=== PATIENT | female | born 1950 | race Caucasian/White ===

== ENCOUNTER 2016-06-29 16:10 | Inpatient (IN) | payer MEDICARE ==
[2016-06-29] MEDS ORDERED: IPRATROPIUM/ALBUTEROL SULFATE 3 ML AMPUL.NEB NEB ONE ×2 (16:27→18:12)
--- NOTE | 2016-06-29 16:28 | ED Physician Documentation ---
Dyspnea - HISTORIAN Historian: patient - HPI Stated Complaint: SOA Chief Complaint: Dyspnea Onset: days ago (1) Duration: continues in ED Severity: mild Exacerbated By: exertion Associated Symptoms: productive cough. denies: chest pain, bloody cough Further Comments: yes (66 yo female presents with c/o cough and shortness of breath. Initial room air sat was 86& on room air on arrival to ER, improved with O2 @2L/NC. No docuemnted fevers. No chest pain. Pt with history of COPD however she does not take her inhalers regularly. She continues to smoke.) - ROS CONST: no problems - PAST HX Lung Disease: COPD Cardiac Disease: CAD, AMI PE Risk Factors: hypertension Allergies/Adverse Reactions: Allergies Allergy/AdvReac Type Severity Reaction Status Date / Time diltiazem Allergy Verified 06/29/16 16:38 simvastatin Allergy Verified 06/29/16 16:38 Home Medications: Ambulatory Orders Medication Instructions Recorded Aspirin [Iwona] 81 mg PO DAILY 03/06/15 Lisinopril [Prinivil] 20 mg PO QD 03/06/15 Lovastatin 40 mg PO DAILY 03/06/15 Metoprolol Tartrate [Lopressor] 25 mg PO BID 03/06/15 Albuterol Sulfate [Proair HFA] 06/29/16 Budesonide/Formoterol Fumarate 06/29/16 [Symbicort 160-4.5 Mcg Inhaler] Tiotropium [place] [Spiriva] 06/29/16 - SOCIAL HX Smoking History: greater than 1 pack/day Alcohol Use: none - FAMILY HX Family History: none - VITAL SIGNS Vital Signs: Vital Signs Temp Pulse Resp BP Pulse Ox 140/52 03/06/15 13:00 - REVIEWED ASSESSMENTS Nursing Assessment Reviewed: Yes Vitals Reviewed: Yes Progress - Progress Progress: Pt requiring O2 to maintain O2 sat above 92%, meets criteria for admission for COPD exacerbation. Dr Bridges graciously accepted ED Results Lab/Radiology - Radiology Radiology Impressions: Ap portable upright radiographs of the chest Clinical history: Cough short of breath Technique: anterior /posterior portable upright Findings: The lung cid are hyperinflated. There is globular cardiomegaly. Findings of coronary bypass grafting are present. No infiltrates are identified. No pneumothorax or pleural effusion is seen. Impression: Hyperinflation Globular cardiomegaly Findings a coronary artery bypass grafting Electronically signed on Jun 29, 2016 5:10:01 PM FINANCE EXECUTIVE by: Arturo Lerma - Orders Orders: ED Orders Category Date Time Status CHEST 1 VIEW [RAD] Stat Exams 06/29/16 Ordered CBC/PLATELET/DIFF Routine Lab 06/29/16 Ordered CMP [CMP] Routine Lab 06/29/16 Ordered TROPONIN I (cTnI) Stat Lab 06/29/16 Ordered Dyspnea Physical Exam - EXAM General Appearance: no acute distress, alert EENT: eye inspection normal, ENT inspection normal, KARENA, no nystagmus Neck: nml inspection Respiratory: no pain on inspiration, speaks full sentences, decreased air movement, wheezes CVS: reg. rate & rhythm Skin: color nml Extremities: non-tender, normal range of motion Neuro/Psych: oriented x3 Discharge Clincal Impression: COPD exacerbation Home Medications: Ambulatory Orders Aspirin [Iwona] 81 mg PO DAILY 03/06/15 Lisinopril [Prinivil] 20 mg PO QD 03/06/15 Lovastatin 40 mg PO DAILY 03/06/15 Metoprolol Tartrate [Lopressor] 25 mg PO BID 03/06/15 Albuterol Sulfate [Proair HFA] 06/29/16 Budesonide/Formoterol Fumarate [Symbicort 160-4.5 Mcg Inhaler] 06/29/16 Tiotropium [place] [Spiriva] 06/29/16 Condition: Good Disposition: 01 HOME, SELF-CARE Decision to Admit: NO Decision Time: 17:55
[2016-06-29 17:15] LABS: BASOPHILS % 0.4 (0.0-1.5); EOSINOPHILS % 1.6 % (0.0-6.8); MEAN CORPUSCULAR HEMOGLOBIN 27.1 pg (28.0-34.0); MONOCYTES # 0.2 # k/uL (0.0-0.9); MONOCYTES % 4.6 % (0.0-11.0); NEUTROPHILS # 3.8 # k/uL (1.4-7.7)
[2016-06-29 17:28] LABS: eGFR (African) > 60; eGFR (Non-African) > 60
[2016-06-29] MEDS ORDERED: cefTRIAXone SODIUM 1 GM in 0.9 % SODIUM CHLORIDE 50 ML IV ONE (17:56)
[2016-06-29] MEDS ORDERED: AZITHROMYCIN 500 MG in 0.9 % SODIUM CHLORIDE 250 ML IV ONE (17:56)
[2016-06-29] MEDS ORDERED: SALINE FLUSH 10 ML DISP.SYRIN IVF ONE (18:50)
--- NOTE | 2016-06-29 19:25 | History and Physical Report ---
History of Present Illnes - History of Present Illness Reason for Visit: Shortness of breath/hypoxia History of Present Illness: This is a 66 year old female admitted with shortness of breath over the past 3 days. She came to the ER for evaluation, and CXR showed no infiltrate, however she could not be weaned to room air (is usually not oxygen dependent), and was very short of breath and has been admitted for COPD exacerbation. She denies any fever or chills, but has been very SOB with minimal exertion. She continues to smoke. - Past Medical History Cardiac: AFIB (for 3 years off and on), CAD (2004, CABG, cath with stents twice since), HTN, PR (2004, 2008), Other (PVD with stents to iliac aorta) Pulmonary: COPD Gastrointestinal: GERD (rare symptoms) Psych: Depression - Past Surgical History Past Surgical History: Cholecystectomy (1969), CABG (2004), Other (anterior cervical fusion 1983, ) - Past Social History Smoke: 1 pack per day Alcohol: None, Occassional Drugs: None Lives: Alone (kids next door) - Health Maintenance Health Maintenance: Influenza Vaccine, Pneumococcal Vaccine Pneumonia Vaccine: Yes Resuscitation Status: Resusciation Status Resuscitation Status Full Code - Unable to Obtain History Unable to Obtain: Yes Review of Systems - Review of Systems Constitutional: Sweats, Weakness. negative: Fever, Chills Eyes: negative: pain, vision change ENT: negative: Ear Pain, Ear Discharge Respiratory: Cough, Shortness of Breath, SOB with Excertion. negative: Hemoptysis Cardiovascular: negative: Chest Pain Gastrointestinal: negative: Nausea, Vomiting Genitourinary: negative: Dysuria Musculoskeletal: negative: Neck Pain, Shoulder Pain Skin: negative: Rash Neurological: negative: Weakness, Numbness, Confusion - Medications/Allergies Allergies/Adverse Reactions: Allergies Allergy/AdvReac Type Severity Reaction Status Date / Time diltiazem Allergy Verified 06/29/16 16:38 simvastatin Allergy Verified 06/29/16 16:38 Home Medications: Home Medications Albuterol Sulfate [Proair HFA] 06/29/16 Budesonide/Formoterol Fumarate [Symbicort 160-4.5 Mcg Inhaler] 06/29/16 Tiotropium [place] [Spiriva] 06/29/16 Current Inpatient Medications: Current Inpatient Medications Albuterol/Ipratropium (Duoneb) 3 ml NEB QID [place] Aspirin (Aspirin) 81 mg PO DAILY [facility] Enoxaparin Sodium (Lovenox) 30 mg SQ QD [facility] Stop: 07/12/16 20:01 Azithromycin 500 mg/ Sodium (Chloride) 250 mls @ 125 mls/hr IV NOW ONE Stop: 06/29/16 19:55 Last Admin: 06/29/16 18:53 Dose: 125 mls/hr Azithromycin 250 mg/ Sodium (Chloride) 250 mls @ 125 mls/hr IV Q24H [facility] Stop: 07/09/16 19:59 Ceftriaxone Sodium 1 gm/ (Sodium Chloride) 50 mls @ 100 mls/hr IV QD [facility] Lisinopril (Prinivil) 20 mg PO DAILY [facility] Methylprednisolone Sodium Succinate (Solu-Medrol) 125 mg IVP Q8 [facility] Metoprolol Tartrate (Lopressor) 25 mg PO DAILY [facility] Multivitamins/Minerals (Ocuvite With Lutein Tablet) 1 each PO DAILY [facility] Simvastatin (Zocor) 40 mg PO HS [facility] Exam - Exam Vital Signs: Vital Signs (72 hours) 06/29/16 18:48 Pulse Rate [ 50 L Pulse ox] Respiratory 20 Rate Blood Pressure 183/66 [Left Arm] O2 Sat by Pulse 97 Oximetry General: Alert, Oriented to Person, Oriented to Place, Oriented to Time, Moderate distress, Discheveled HEENT: Atraumatic, PERRLA, EOMI, Mouth Mucous membr. moist/Baker, Nose Mucous membr. moist/Baker Neck: Normal Range of Motion. No: Stridor Lungs: Wheezes, Rhonchi, Prolonged Expiration Cardiovascular: Regular rate, Normal S1, Normal S2 Murmur: No: Systolic Murmur Abdomen: Normal bowel sounds, Soft, No tenderness, Other (vertical scar from cholecystectomy (1970s)) Genitourinary: No: Right Inguinal Hernia Female Genitourinary: No: Prolapse Integumentary: Normal, Warm, Dry Extremities: No clubbing, Other (1+ edema LLE) Neurological: Normal speech, Strength Equal Bilat, Generalized Weakness Psych/Mental Status: Mental status NL Assessment/Plan - Assessment/Plan (1) COPD exacerbation Status: Acute Current Visit: Yes Assessment: No evidence of infiltrate Plan: Solumedrol/ABX/Duoneb (2) Smoker Status: Acute Current Visit: Yes Assessment: Encouraged smoking cessation (3) PAD (peripheral artery disease) Status: Acute Current Visit: Yes Assessment: S/P AAA stent (4) HTN (hypertension) Status: Acute Current Visit: Yes Assessment: Restart metoprolol (5) Hypokalemia Status: Acute Current Visit: Yes Assessment: Oral potassium repacement Check BMP in am (6) Thrombocytopenia Status: Acute Current Visit: Yes Assessment: ?Chronic Plan: Check CBC in am (7) Anemia Status: Acute Current Visit: Yes Plan: Check CBC in am (8) coronary artery disease Status: Acute Current Visit: No Assessment: S/P CABG and multiple stents, but with multiple stents VTE Assessment - RISK FACTOR SCORE VTE RISK FACTOR SCORES: AGE OVER 60 YEARS, ACUTE RESPIRATORY FAILURE/SEVERE COPD - RISK VTE MODERATE RISK: SCORE OF 2 (RISK PROXIMAL DVT 2-4%) PROPHYAXIS NEEDED (On lovenox and DAVEY hose)
[2016-06-29] MEDS ORDERED: SIMVASTATIN 40 MG TABLET ONE (19:32)
[2016-06-29 20:11] VITALS: BMI 30.2
[2016-06-29] MEDS: METOPROLOL TARTRATE 50 MG TABLET PO SCH (20:28)
[2016-06-29] MEDS: ENOXAPARIN SODIUM 30 MG/0.3 ML DISP.SYRIN SQ SCH (20:29)
[2016-06-29] MEDS: cefTRIAXone SODIUM 1 GM in 0.9 % SODIUM CHLORIDE 50 ML IV SCH (20:42)
[2016-06-29] MEDS: AZITHROMYCIN 250 MG in 0.9 % SODIUM CHLORIDE 250 ML IV SCH (20:43)
[2016-06-29] MEDS: IPRATROPIUM/ALBUTEROL SULFATE 3 ML AMPUL.NEB NEB SCH (20:43)
[2016-06-29] MEDS: methylPREDNISolone SOD SUCC 125 MG/2 ML VIAL IVP SCH (20:43)
[2016-06-29] MEDS ORDERED: SIMVASTATIN 40 MG TABLET PO SCH (21:00)
[2016-06-30] MEDS ORDERED: ASPIRIN EC 81 MG TABLET.DR ONE (05:31)
--- NOTE | 2016-06-30 05:50 | Diagnostic Imaging Report ---
Report Submission Date: Jun 29, 2016 5:10:01 PM CONFIGURATION MANAGEMENT ADVISOR Patient ~ Study Name: MARGARITO FELIPE ~ Date: Jun 29, 2016 4:45:41 PM CONFIGURATION MANAGEMENT ADVISOR ~ Modality Type: CR Gender: F ~ Description: CHEST : 46 ~ Institution: [facility] Physician: NAOMI YOUNG ~ ~ ~ ~ Ap portable upright radiographs of the chest Clinical history: Cough short of breath Technique: anterior /posterior portable upright Findings: The lung cid are hyperinflated. There is globular cardiomegaly. Findings of coronary bypass grafting are present. No infiltrates are identified. No pneumothorax or pleural effusion is seen. Impression: Hyperinflation Globular cardiomegaly Findings a coronary artery bypass grafting ~ Electronically signed on Jun 29, 2016 5:10:01 PM CONFIGURATION MANAGEMENT ADVISOR by: Arturo CARRION
[2016-06-30] MEDS: methylPREDNISolone SOD SUCC 125 MG/2 ML VIAL IVP SCH ×3 (06:29→21:10)
[2016-06-30 07:06] LABS: PH BG VENOUS 7.38 (7.32-7.43)
[2016-06-30 07:12] LABS: MEAN CORPUSCULAR HEMOGLOBIN 27.9 pg (28.0-34.0)
[2016-06-30 07:34] LABS: eGFR (African) > 60; eGFR (Non-African) > 60
[2016-06-30] MEDS ORDERED: KETOROLAC TROMETHAMINE 30 MG/1ML VIAL ONE (08:31)
[2016-06-30] MEDS ORDERED: SALINE FLUSH 10 ML DISP.SYRIN IVF ONE ×4 (08:31→13:48)
[2016-06-30] MEDS ORDERED: KETOROLAC TROMETHAMINE 30 MG/1ML VIAL IVP ONE (08:33)
[2016-06-30] MEDS: IPRATROPIUM/ALBUTEROL SULFATE 3 ML AMPUL.NEB NEB SCH ×4 (08:36→21:05)
[2016-06-30] MEDS: NITROGLYCERIN 0.4 MG TAB.SUBL SL PRN ×3 (08:42→09:01)
--- NOTE | 2016-06-30 08:52 | Inpatient Progress Note ---
Subjective - Required Recertification Statement I anticipate X number of days because-include discharge plan: 3 - Review of Systems Events since last encounter: Lynne has developed some chest pain and has gone into AF/RVR with a rate in the 120s. She had some chest pain that she rated 6/10, which has improved with nitro/toradol/breathing treatment. She is feeling much better. Her chest x ray shows no changes from last exam. General: Denies: Chills (but was febrile last night) HEENT: Denies: Head Aches, Visual Changes Pulmonary: Dyspnea, Cough Cardiovascular: Chest Pain, Palpitations. Denies: Orthopnea Gastrointestinal: Denies: Nausea, Vomiting Genitourinary: Denies: Dysuria Musculoskeletal: Denies: Neck Pain Neurological: Weakness. Denies: Confusion Objective - Exam Vitals and I&O: Vital Signs Temp 97.3 F L 06/30/16 06:00 Pulse 48 L 06/30/16 06:00 Resp 18 06/30/16 06:00 BP 141/61 06/30/16 06:00 Pulse Ox 95 06/30/16 06:00 Intake & Output 06/29/16 06/29/16 06/30/16 11:59 23:59 11:59 Weight 87.543 kg Other: # Voids 3 General: Alert, Oriented to Person, Oriented to Place, Oriented to Time HEENT: Atraumatic, EOMI Neck: Supple, No JVD Lungs: Speaks full Sentences, Wheezes, Prolonged Expiration Cardiovascular: Irregularly Irregular Abdomen: Normal bowel sounds Extremities: Other (2+ edema) Skin: Normal, [place], Warm Neurological: Normal speech Psych/Mental Status: Mental status NL - Results Results: Laboratory Results WBC 3.60 K/ul (4.00-12.00) L 06/30/16 06:40 RBC 4.01 M/ul (3.90-5.20) 06/30/16 06:40 Hgb 11.2 g/dL (12.0-16.0) L 06/30/16 06:40 Hct 34.9 % (34.5-46.5) 06/30/16 06:40 MCV 87.1 fl (80.0-100.0) 06/30/16 06:40 MCH 27.9 pg (28.0-34.0) L 06/30/16 06:40 MCHC 32.0 g/dL (30.0-36.0) 06/30/16 06:40 RDW 14.6 % (11.3-14.3) H 06/30/16 06:40 Plt Count 106 K/mm3 (130-400) L 06/30/16 06:40 Neut % (Auto) 72.4 % (39.0-79.0) 06/29/16 17:00 Lymph % (Auto) 19.7 % (16.0-50.0) 06/29/16 17:00 [place]man % (Auto) 4.6 % (0.0-11.0) 06/29/16 17:00 Eos % (Auto) 1.6 % (0.0-6.8) 06/29/16 17:00 Baso % (Auto) 0.4 (0.0-1.5) 06/29/16 17:00 Neut # 3.8 # k/uL (1.4-7.7) 06/29/16 17:00 Lymph # 1.0 # k/uL (0.6-4.0) 06/29/16 17:00 Whitman # 0.2 # k/uL (0.0-0.9) 06/29/16 17:00 Eos # 0.1 # k/uL (0.0-0.6) 06/29/16 17:00 Baso # 0.0 # k/uL (0.0-0.5) 06/29/16 17:00 Reactive Lymphs % 1.2 % (0.0-5.0) 06/29/16 17:00 Reactive Lymphs # 0.1 # k/uL (0.0-0.8) 06/29/16 17:00 VBG pH 7.38 (7.32-7.43) 06/29/16 16:45 VBG pCO2 at Pat Temp 53 mmHG (40-60) 06/29/16 16:45 VBG pO2 at Pat Temp 26 mmHg (30-55) L 06/29/16 16:45 VBG HCO3 31 mmol/L (22-27) H 06/29/16 16:45 VBG O2 Sat (Calc) 46 % (40-85) 06/29/16 16:45 VBG Base Excess 33 mmol/L (-2- +2) H 06/29/16 16:45 Sodium 142 mmol/L (136-145) 06/30/16 06:40 Potassium 3.6 mmol/L (3.5-5.0) 06/30/16 06:40 Chloride 105 mmol/L (98-110) 06/30/16 06:40 Carbon Dioxide 26 mmol/L (20-32) 06/30/16 06:40 BUN 12 mg/dL (10-26) 06/30/16 06:40 Creatinine 0.6 mg/dL (0.4-1.5) 06/30/16 06:40 Estimated Creat Clear 145 06/30/16 06:40 Est GFR ( Amer) > 60 (60-) 06/30/16 06:40 Est GFR (Non-Af Amer) > 60 (60-) 06/30/16 06:40 Glucose 194 mg/dL (70-99) H 06/30/16 06:40 Calcium 8.9 mg/dL (8.5-10.5) 06/30/16 06:40 Total Bilirubin 0.7 mg/dL (0.2-1.2) 06/29/16 17:00 AST 17 U/L (0-41) 06/29/16 17:00 ALT 15 U/L (0-45) 06/29/16 17:00 Alkaline Phosphatase 117 U/L (46-116) H 06/29/16 17:00 Troponin I < 0.03 ng/mL (0.03-0.06) L 06/29/16 17:00 Total Protein 7.1 g/dL (6.0-8.5) 06/29/16 17:00 Albumin 4.3 g/dL (3.0-5.5) 06/29/16 17:00 Assessment/Plan - Assessment/Plan (1) COPD exacerbation Status: Acute Current Visit: Yes Assessment: With minimal improvement (2) Smoker Status: Acute Current Visit: Yes Assessment: Encourage smoking cessation (3) PAD (peripheral artery disease) Status: Acute Current Visit: Yes Assessment: Stable (4) HTN (hypertension) Status: Acute Current Visit: Yes Assessment: Stable (5) Hypokalemia Status: Acute Current Visit: Yes Assessment: Improved with supplementation (6) Thrombocytopenia Status: Acute Current Visit: Yes (7) Anemia Status: Acute Current Visit: Yes (8) coronary artery disease Status: Acute Current Visit: No Assessment: With new onset chest pain Plan: Will check a troponin this am about 1100, due to unlikelihood that it would be positive this soon after chest pain onset (9) Atrial fibrillation with rapid ventricular response Status: Acute Current Visit: Yes Assessment: With allergy to diltiazem Plan: Will load with digoxin due to diltiazem allergy Discussed with Dr. Cooper, who recommended IV digoxin at 0.5 mg IV and metoprolol 5 mg IV which can be repeated x 3 doses.
[2016-06-30] MEDS: ASPIRIN 81 MG CHEW TAB PO SCH (09:04)
[2016-06-30] MEDS ORDERED: MORPHINE SULFATE 2 MG/ML DISP.SYRIN IVP PRN (09:05)
[2016-06-30] MEDS: LISINOPRIL 20 MG TABLET PO SCH (09:17)
[2016-06-30] MEDS: METOPROLOL TARTRATE 50 MG TABLET PO SCH (09:18)
[2016-06-30] MEDS ORDERED: METOPROLOL TARTRATE 5 MG/5 ML VIAL IVP ONE (09:19)
[2016-06-30] MEDS ORDERED: DIGOXIN 250MCG/1ML IVP ONE (09:20)
[2016-06-30] MEDS: LUTEIN PO SCH (09:51)
[2016-06-30] MEDS: VIT A C PO SCH (09:51)
[2016-06-30] MEDS: [UNRECOGNIZED DRUG - OTHER] PO SCH (09:51)
[2016-06-30] MEDS: MINERALS PO SCH (09:51)
--- NOTE | 2016-06-30 11:16 | Diagnostic Imaging Report ---
[facility] [id number] [facility] [id number] Report Submission Date: Jun 30, 2016 9:27:05 AM STATE EPIDEMIOLOGIST Patient Study Name: MARGARITO FELIPE Date: Jun 30, 2016 8:19:50 AM STATE EPIDEMIOLOGIST Modality Type: CR Gender: F Description: CHEST : 46 Institution: [facility] Physician: BRANDEN MALCOM 2 views the chest Clinical history: Short of breath Findings: The heart size is mildly enlarged. The pulmonary vasculature are normal. No pleural effusion, pneumothorax or alveolar consolidation. Prior median sternotomy and CABG noted. Impression: Cardiomegaly without chf and/or pneumonia Electronically signed on Jun 30, 2016 9:27:05 AM STATE EPIDEMIOLOGIST by: Raul CARROIN
[2016-06-30] MEDS ORDERED: 0.9 % SODIUM CHLORIDE 250 ML IV ONE (19:28)
[2016-06-30] MEDS: AZITHROMYCIN 250 MG in 0.9 % SODIUM CHLORIDE 250 ML IV SCH (20:31)
[2016-06-30] MEDS: ENOXAPARIN SODIUM 30 MG/0.3 ML DISP.SYRIN SQ SCH (20:32)
[2016-06-30] MEDS: cefTRIAXone SODIUM 1 GM in 0.9 % SODIUM CHLORIDE 50 ML IV SCH (22:52)
[2016-07-01] MEDS ORDERED: SALINE FLUSH 10 ML DISP.SYRIN IVF ONE (06:12)
[2016-07-01] MEDS: methylPREDNISolone SOD SUCC 125 MG/2 ML VIAL IVP SCH (06:19)
[2016-07-01] MEDS: METOPROLOL TARTRATE 50 MG TABLET PO SCH (08:35)
[2016-07-01] MEDS: [UNRECOGNIZED DRUG - OTHER] PO SCH (08:35)
[2016-07-01] MEDS: MINERALS PO SCH (08:35)
[2016-07-01] MEDS: VIT A C PO SCH (08:35)
[2016-07-01] MEDS: LUTEIN PO SCH (08:35)
[2016-07-01] MEDS: LISINOPRIL 20 MG TABLET PO SCH (08:39)
[2016-07-01] MEDS: ASPIRIN 81 MG CHEW TAB PO SCH (08:39)
[2016-07-01] MEDS ORDERED: SALINE FLUSH 10 ML DISP.SYRIN IV SCH (09:00)
[2016-07-01] MEDS: IPRATROPIUM/ALBUTEROL SULFATE 3 ML AMPUL.NEB NEB SCH ×4 (09:16→22:12)
--- NOTE | 2016-07-01 09:30 | Inpatient Progress Note ---
Subjective - Required Recertification Statement I anticipate X number of days because-include discharge plan: 1 - Review of Systems General: Denies: Chills HEENT: Denies: Head Aches Pulmonary: Dyspnea, Cough Cardiovascular: Denies: Chest Pain, Palpitations Gastrointestinal: Denies: Nausea Genitourinary: Denies: Dysuria Musculoskeletal: Denies: Neck Pain Neurological: Denies: Weakness Objective - Exam Vitals and I&O: Vital Signs Temp 97.9 F 07/01/16 06:00 Pulse 66 07/01/16 06:00 Resp 16 07/01/16 06:00 BP 151/62 07/01/16 06:00 Pulse Ox 95 07/01/16 06:00 Intake & Output 06/30/16 06/30/16 07/01/16 11:59 23:59 11:59 Intake Total 120 120 480 Balance 120 120 480 Intake: Oral 120 120 480 Other: Voiding Method Toilet Toilet # Voids 3 1 3 # Bowel Movements 0 General: Alert, Oriented to Person, Oriented to Place, Oriented to Time HEENT: Atraumatic, PERRLA, EOMI Neck: Supple, No JVD Lungs: Wheezes, Prolonged Expiration, Decreased Air Movement Cardiovascular: Regular rate, Bradycardia Abdomen: Normal bowel sounds, Soft. No: Decreased Bowel Sounds Extremities: Other (1+edema and DAVEY hose in place) Skin: Normal Neurological: Normal speech Psych/Mental Status: Mental status NL - Results Results: Laboratory Results WBC 3.60 K/ul (4.00-12.00) L 06/30/16 06:40 RBC 4.01 M/ul (3.90-5.20) 06/30/16 06:40 Hgb 11.2 g/dL (12.0-16.0) L 06/30/16 06:40 Hct 34.9 % (34.5-46.5) 06/30/16 06:40 MCV 87.1 fl (80.0-100.0) 06/30/16 06:40 MCH 27.9 pg (28.0-34.0) L 06/30/16 06:40 MCHC 32.0 g/dL (30.0-36.0) 06/30/16 06:40 RDW 14.6 % (11.3-14.3) H 06/30/16 06:40 Plt Count 106 K/mm3 (130-400) L 06/30/16 06:40 Neut % (Auto) 72.4 % (39.0-79.0) 06/29/16 17:00 Lymph % (Auto) 19.7 % (16.0-50.0) 06/29/16 17:00 [place] % (Auto) 4.6 % (0.0-11.0) 06/29/16 17:00 Eos % (Auto) 1.6 % (0.0-6.8) 06/29/16 17:00 Baso % (Auto) 0.4 (0.0-1.5) 06/29/16 17:00 Neut # 3.8 # k/uL (1.4-7.7) 06/29/16 17:00 Lymph # 1.0 # k/uL (0.6-4.0) 06/29/16 17:00 [place] # 0.2 # k/uL (0.0-0.9) 06/29/16 17:00 Eos # 0.1 # k/uL (0.0-0.6) 06/29/16 17:00 Baso # 0.0 # k/uL (0.0-0.5) 06/29/16 17:00 Reactive Lymphs % 1.2 % (0.0-5.0) 06/29/16 17:00 Reactive Lymphs # 0.1 # k/uL (0.0-0.8) 06/29/16 17:00 VBG pH 7.38 (7.32-7.43) 06/29/16 16:45 VBG pCO2 at Pat Temp 53 mmHG (40-60) 06/29/16 16:45 VBG pO2 at Pat Temp 26 mmHg (30-55) L 06/29/16 16:45 VBG HCO3 31 mmol/L (22-27) H 06/29/16 16:45 VBG O2 Sat (Calc) 46 % (40-85) 06/29/16 16:45 VBG Base Excess 33 mmol/L (-2- +2) H 06/29/16 16:45 Sodium 142 mmol/L (136-145) 06/30/16 06:40 Potassium 3.6 mmol/L (3.5-5.0) 06/30/16 06:40 Chloride 105 mmol/L (98-110) 06/30/16 06:40 Carbon Dioxide 26 mmol/L (20-32) 06/30/16 06:40 BUN 12 mg/dL (10-26) 06/30/16 06:40 Creatinine 0.6 mg/dL (0.4-1.5) 06/30/16 06:40 Estimated Creat Clear 145 06/30/16 06:40 Est GFR ( Amer) > 60 (60-) 06/30/16 06:40 Est GFR (Non-Af Amer) > 60 (60-) 06/30/16 06:40 Glucose 194 mg/dL (70-99) H 06/30/16 06:40 Calcium 8.9 mg/dL (8.5-10.5) 06/30/16 06:40 Total Bilirubin 0.7 mg/dL (0.2-1.2) 06/29/16 17:00 AST 17 U/L (0-41) 06/29/16 17:00 ALT 15 U/L (0-45) 06/29/16 17:00 Alkaline Phosphatase 117 U/L (46-116) H 06/29/16 17:00 Troponin I < 0.03 ng/mL (0.03-0.06) L 06/29/16 17:00 Total Protein 7.1 g/dL (6.0-8.5) 06/29/16 17:00 Albumin 4.3 g/dL (3.0-5.5) 06/29/16 17:00 Influenza Type A Ag Negative (NEGATIVE) 06/30/16 12:35 Influenza Type B Ag Negative (NEGATIVE) 06/30/16 12:35 Assessment/Plan - Assessment/Plan (1) COPD exacerbation Status: Acute Current Visit: Yes Assessment: Improving but unable to maintain an IV Plan: Change to PO prednisone/cefuroxime/azithromycin (2) Smoker Status: Acute Current Visit: Yes Assessment: Encourage smoking cessation (3) PAD (peripheral artery disease) Status: Acute Current Visit: Yes Assessment: Stable (4) HTN (hypertension) Status: Acute Current Visit: Yes Assessment: Fair control I am hesitant to increase beta blockade in the face of current bradycardia (5) Hypokalemia Status: Acute Current Visit: Yes Assessment: Resolved (6) Thrombocytopenia Status: Acute Current Visit: Yes (7) Anemia Status: Acute Current Visit: Yes (8) coronary artery disease Status: Acute Current Visit: No Assessment: No current evidence of ischemia (9) Atrial fibrillation with rapid ventricular response Status: Acute Current Visit: Yes Assessment: Now NSR with some bradycardia
[2016-07-01] MEDS: ENOXAPARIN SODIUM 30 MG/0.3 ML DISP.SYRIN SQ SCH (20:06)
[2016-07-01] MEDS: CEFUROXIME AXETIL 250 MG TABLET PO SCH (20:06)
[2016-07-02 07:27] LABS: MEAN CORPUSCULAR HEMOGLOBIN 27.1 pg (28.0-34.0)
[2016-07-02 07:45] LABS: eGFR (African) > 60; eGFR (Non-African) > 60
[2016-07-02] MEDS: ASPIRIN 81 MG CHEW TAB PO SCH (08:52)
[2016-07-02] MEDS: CEFUROXIME AXETIL 250 MG TABLET PO SCH (08:52)
[2016-07-02] MEDS: METOPROLOL TARTRATE 50 MG TABLET PO SCH (08:52)
[2016-07-02] MEDS: LISINOPRIL 20 MG TABLET PO SCH (08:53)
[2016-07-02] MEDS: MINERALS PO SCH (08:53)
[2016-07-02] MEDS: LUTEIN PO SCH (08:53)
[2016-07-02] MEDS: VIT A C PO SCH (08:53)
[2016-07-02] MEDS: [UNRECOGNIZED DRUG - OTHER] PO SCH (08:53)
[2016-07-02] MEDS ORDERED: POTASSIUM CHLORIDE 20 MEQ TABLET.ER PO SCH (09:00)
[2016-07-02] MEDS ORDERED: AZITHROMYCIN 250 MG TABLET PO SCH (09:00)
[2016-07-02] MEDS ORDERED: predniSONE 10 MG TABLET PO SCH (09:00)
--- NOTE | 2016-07-02 12:10 | Discharge Summary ---
DATE OF ADMISSION: June 29, 2016. DATE OF DISCHARGE: July 02, 2016 DIAGNOSES ON THIS HOSPITALIZATION: 1. Chronic obstruction pulmonary disease (COPD) exacerbation. 2. Atrial fibrillation with rapid ventricular response. 3. Hypokalemia. 4. Atherosclerotic coronary vascular disease. 5. Hypoxia. SUMMARIZATION OF ADMISSION HISTORY AND PHYSICAL: This is a 66-year-old female with a history of COPD who presented with hypoxia and wheezing to the emergency room. Her pulse oximetry was 86% on presentation to the emergency department. A chest x-ray did not show any infiltrate. On hospital day 2, she began to have some tachycardia and some chest pain. She was seen in consultation by Dr. Cooper. An echocardiogram was performed which showed no significant evidence of congestive heart failure. No significant left atrial enlargement. We did give her 500 mcg of IV Digoxin and 5 mg of IV metoprolol and she converted to a sinus rhythm and actually was in the 50s for most of the rest of her stay and in a normal sinus rhythm. She was discharged to home with the initiation of home oxygen therapy. An order for that was faxed to [facility], as well as a prescription for a nebulizer. She was discharged to home with continuation of the rest of her medications. MEDICATIONS ON DISCHARGE: 1. Metoprolol 25 mg p.o. b.i.d. 2. Started potassium 20 mEq daily. 3. Prednisone 20 mg daily was added. DISCHARGE INSTRUCTIONS: She will follow up with Dr. Rizzo next week and she has an appointment to see her dust control engineer, Dr. Martinez, next week also. She will follow up with him. Again, I discussed with Dr. Cooper and Dr. Cooper's consideration is that she likely, with this bout of atrial fibrillation and a history of having the same in the past, needs to be started long-term anticoagulation. She will have that discussion with Dr. Martinez when she sees him next week. [facility]
[2016-07-02] MEDS: IPRATROPIUM/ALBUTEROL SULFATE 3 ML AMPUL.NEB NEB SCH (15:40)
[2016-07-02 15:42] VITALS: BP 149/65
== END 2016-07-02 14:30 | disposition home or self-care (01) | DRG 192 ==
LOC: ED 16:10 → SOUTH 18:23 → UNDOADMIN 18:23
PROVIDERS: ADMIT Family Medicine; ATTEND Family Medicine
DX: J44.1 Chronic obstructive pulmonary disease with (acute) exacerbation (principal); I48.91 Unspecified atrial fibrillation; E87.6 Hypokalemia; I25.10 Atherosclerotic heart disease of native coronary artery without angina pectoris; R09.02 Hypoxemia
CPT/HCPCS: 36415; 71010; 71020; 80048; 80053; 82805; 84484; 85025; 85027; 87400; 93005; 94640; 94760; A9270; J0456; J0696; J1160; J1650; J1885; J2270; J2930; J3490; J7050; J7512; 99222; 99232; 99238; 99283; S1016